=== PATIENT | female | born 1940 | race Caucasian/White ===

== ENCOUNTER 2021-08-22 12:09 | Observation (INO) ==
[2021-08-22] MEDS ORDERED: *HR* HYDROmorphone (PF) 1 MG/ML SYRINGE IVP ONE (13:09)
[2021-08-22] MEDS ORDERED: *HR* HYDROmorphone 2 MG/ML SYRINGE IVP ONE (14:26)
[2021-08-22] MEDS ORDERED: amLODIPine 5 MG TABLET PO ONE (14:42)
[2021-08-22 15:18] LABS: Basophils # 0.1 K/mcL (0.0-0.2); Basophils % 0.5 %; Eosinophils % 0.1 %; Hematocrit 46.5 % (35.3-44.9); Hemoglobin 15.2 g/dL (11.5-15.4); Immature Granulocytes % 0.5 % (0-4); Lymphocytes # 1.3 K/mcL (0.6-4.6); Lymphocytes % 11.6 %; Mean Corpuscular HGB Conc 32.7 g/dL (31.6-35.5); Mean Corpuscular Hemoglobin 30.5 pg (28.0-33.3); Mean Corpuscular Volume 93.4 fL (83.0-100.0); Mean Platelet Volume 10.5 fL (9.4-12.4); Monocytes # 0.9 K/mcL (0.0-1.3); Monocytes % 7.5 %; Neutrophils # 9.2 K/mcL (1.6-8.9); Platelet Count 307 K/mcL (140-400); Red Blood Count 4.98 M/mcL (3.82-4.97); Red Cell Distribution Width 14.3 % (11.5-14.5); Segmented Neutrophils % 79.8 %; White Blood Count 11.5 K/mcL (4.3-11.1)
[2021-08-22 15:42] LABS: BUN/Creatinine Ratio 9 (6-26); Blood Urea Nitrogen 6 mg/dL (8-23); Calcium 9.4 mg/dL (8.6-10.3); Carbon Dioxide 24 mEq/L (23-29); Chloride 108 mEq/L (98-107); Glucose 94 mg/dL (70-105); Osmolality,Calculated 299 (280-300); Sodium 146 mEq/L (136-145); eGFR For African Americans > 60 (> 60); eGFR For Non-African Americans > 60 (> 60)
[2021-08-22] MEDS ORDERED: Ondansetron 4 MG/2 ML VIAL IVP PRN (17:30)
[2021-08-22] MEDS ORDERED: *HR* OxyCODONE Immed Rel 5 MG TABLET PO PRN (17:30)
[2021-08-22] MEDS ORDERED: Naloxone 0.4 MG/ML INJ IVP PRN (17:30)
[2021-08-22] MEDS ORDERED: *HR* Labetalol 20 MG/4 ML SYRINGE IVP PRN (17:32)
[2021-08-22] MEDS ORDERED: *HR* OxyCODONE/APAP 5/325 TABLET PO PRN (17:33)
[2021-08-22] MEDS ORDERED: lisinopriL 20 MG TABLET PO ONE (17:35)
[2021-08-22] MEDS ORDERED: *HR* Heparin 5,000 UNIT/ML VIAL SQ SCH (18:00)
[2021-08-22 20:07] VITALS: TEMP 98.3
[2021-08-22] MEDS ORDERED: *HR* Labetalol 20 MG/4 ML SYRINGE IVP ONE (20:08)
[2021-08-22] MEDS ORDERED: Isovue-370 500 ML BOTTLE IVP ONE (20:26)
[2021-08-22] MEDS ORDERED: Perflutren Lipid Microsphere 1.3 ML in 0.9 % Sodium Chloride 8.7 ML IVP PRN (20:27)
[2021-08-22] MEDS ORDERED: *HR* LORazepam 2 MG/ML VIAL ONE (20:38)
[2021-08-22] MEDS ORDERED: *HR* LORazepam 2 MG/ML VIAL IVP ONE (20:43)
[2021-08-22] MEDS ORDERED: *HR* Adenosine 6 MG/2 ML VIAL IVP ONE (20:59)
[2021-08-22] MEDS ORDERED: Gabapentin 400 MG CAPSULE PO SCH (21:00)
[2021-08-22] MEDS ORDERED: SODIUM CHLORIDE 0.9% IVPB ONE (21:24)
[2021-08-22] MEDS ORDERED: LEVETIRACETAM IVPB ONE (21:24)
[2021-08-22] MEDS ORDERED: *HR* LORazepam 2 MG/ML VIAL IVP PRN (21:24)
[2021-08-22 23:25] VITALS: O2SAT 99
[2021-08-23 00:08] VITALS: BP 162/102; PULSE 106
[2021-08-23] MEDS ORDERED: amLODIPine 5 MG TABLET PO ONE (14:27)
== END 2021-08-23 00:49 | disposition short-term general hospital (02) ==
LOC: 3ANU 12:09 → EMEROOARM 12:09 → 3ANU 18:39
PROVIDERS: ADMIT Pharmacist; ATTEND Pharmacist